=== PATIENT | male | born 1975 | race Two or more races ===

== ENCOUNTER 2022-08-18 22:47 | Emergency (ER) | payer SELFPAY ==
[~2022-08-18] VITALS: Ht 172.7 cm; Wt 78.0 kg
--- NOTE | 2022-08-18 23:05 | NUR ---
BIBS THIS 46/M CC OF LEFT CHEST PAIN RADIATING TO LEFT ARM. BURNING IN PRESENTATION. SCALE OF 8/10. PATIENT IS ARMANIAN SPEAKING. +SOB SATURATING 97% IN RA. 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 ATTACHED TO MONITOR. VITALS CHECKED.
--- NOTE | 2022-08-18 23:15 | NUR ---
SEEN BY DR AMEZQUITA AT BEDSIDE
--- NOTE | 2022-08-18 23:15 | NUR ---
EKG DONE AT BEDSIDE
[2022-08-18] MEDS ORDERED: NITROGLYCERIN 0.4 MG/TAB BOTTLE ONE (23:23)
[2022-08-18] MEDS ORDERED: ASPIRIN EC 325 MG TABLET.DR PO ONE (23:23)
--- NOTE | 2022-08-18 23:29 | NUR ---
SUPERINTENDENT PRESSURE AT BEDSIDE
[2022-08-18] MEDS ORDERED: ASPIRIN 325 MG TABLET PO ONE (23:30)
[2022-08-18] MEDS ORDERED: NITROGLYCERIN 0.4 MG/TAB BOTTLE SL ONE (23:30)
[2022-08-19 00:01] LABS: BASOPHILS % (AUTO) 0.2 % (0.0-2.0); EOSINOPHILS % (AUTO) 1.4 % (0.0-6.0); HEMATOCRIT 45 % (39-51); HEMOGLOBIN 14.7 g/dL (13.5-17.5); LYMPHOCYTES # (AUTO) 3.6 K/uL (0.8-4.8); LYMPHOCYTES % (AUTO) 31.5 % (20.0-44.0); MEAN CORPUSCULAR HGB CONC 33 g/dl (31.0-36.0); MEAN CORPUSCULAR VOLUME 96 fL (80-96); MONOCYTES # (AUTO) 0.9 K/uL (0.1-1.30); NEUTROPHILS # (AUTO) 6.7 K/uL (1.8-8.9); NEUTROPHILS % (AUTO) 58.9 % (43.0-81.0); PLATELET COUNT (AUTO) 234 K/uL (150-450); WHITE BLOOD COUNT (AUTO) 11.3 K/uL (4.3-11.0)
[2022-08-19 00:12] LABS: CALCIUM, SERUM 8.9 mg/dL (8.5-10.1); CARBON DIOXIDE 24 mmol/L (21-32); CHLORIDE 105 mmol/L (98-107); CREATININE 0.6 mg/dL (0.6-1.3); GLUCOSE 89 mg/dL (74-106); POTASSIUM 3.6 mmol/L (3.5-5.1); SODIUM SERUM 137 mmol/L (136-145); UREA NITROGEN, BLOOD 19 mg/dL (7-18)
[2022-08-19] MEDS ORDERED: ASPI-1420 PO (00:38)
[2022-08-19] MEDS ORDERED: NITR0.4T48 SL (00:38)
[2022-08-19 00:45] VITALS: BP 118/66
--- NOTE | 2022-08-19 00:47 | NUR ---
Patient discharged to home in stable condition. Written and verbal after care instructions given. Patient verbalizes understanding of instruction.
== END 2022-08-19 00:46 | disposition home or self-care (01) ==
LOC: ER 22:53
DX: R07.89 Other chest pain (principal); F17.200 Nicotine dependence, unspecified, uncomplicated; Z79.899 Other long term (current) drug therapy
CPT/HCPCS: 36415; 71045-TC; 80048-TC; 83880; 84484-TC; 85025-TC